=== PATIENT | male | born 1990 | race Hispanic/Latino ===

== ENCOUNTER 2025-05-19 14:29 | Emergency (ER) | payer BC, SELFPAY ==
[2025-05-19 14:31] VITALS: BP 132/86
[2025-05-19 15:20] VITALS: BP 125/79
[2025-05-19 15:36] VITALS: BMI 27.5
[2025-05-19] MEDS: NSS 1000 IV (15:48)
[2025-05-19 16:00] VITALS: BP 122/72
[2025-05-19 16:05] LABS: Hematocrit 44.0 % (39.0-52.0); Hemoglobin 15.7 g/dL (13.0-18.0); Mean Corp Hgb Conc. 35.7 g/dL (33.0-37.0); Mean Corpuscular Volume 83.5 fL (80.0-94.0); Nucleated Red Blood Cells % 0 % (-); Platelet Count 288 10^3/uL (130-400); Red Cell Dist. Width 12.3 % (11.5-14.5)
[2025-05-19 16:15] LABS: ALT (SGPT) 112 U/L (0-50); AST (SGOT) 60 U/L (17-59); Albumin 4.9 g/dl (3.5-5.0); Alkaline Phosphatase 88 U/L (38-126); Blood Urea Nitrogen 13 mg/dl (9-20); Calcium 9.4 mg/dl (8.4-10.2); Carbon Dioxide 27 mmol/L (22-30); Chloride 103 mmol/L (98-107); Estimated Creatinine Clearance > 125 ml/min; Glucose 96 mg/dl (70-99); Potassium 4.2 mmol/L (3.5-5.1); Sodium 139 mmol/L (135-145); Total Protein 7.8 g/dl (6.3-8.2); eGFR > 60.00
[2025-05-19 16:28] LABS: COVID-19 Antigen Negative (Negative)
--- NOTE | 2025-05-19 16:48 | ED.GENMED ---
History of Present Illness
General
Chief Complaint: Abdominal Symptoms
Time Seen by Provider: 05/19/25 14:35
History of Present Illness
History of Present Illness:
34-year-old male with no past medical history presents to the emergency department for evaluation of tactile fever and chills as well as sweating, shaking, body aches, and vomiting beginning today. Arrives with a close friend who provides
interpretation for him. He denies any chest pain or dyspnea, no coughing or rhinorrhea. Took Tylenol this morning
Past History
Past History
ED Past Medical History: None
ED Past Surgical History: None
Social History
Tobacco: Non-smoker
Alcohol: None
Drug: None
Personal: Partner
Employment: Employed
Review of Systems
Review of Systems
Allergies reviewed?: Yes
All Other Systems: ROS reviewed and negative except as documented in HPI and ROS
Phy Exam
Physical Exam
Physical Exam:
GEN: Well appearing, NAD, WDWN
HEENT: Oral mucosa moist, no scleral icterus
Cardiac: Slightly tachycardic, regular, no murmur
Lung: No respiratory distress, no tachypnea, lungs clear to auscultation
Abdomen: Soft, grossly nontender
MSK: No gross deformity or injuries
Skin: Good color, no pallor or jaundice, no rashes
Neuro: AO x3, moves all extremities freely
Psych: Calm, cooperative
Course
Orders/Labs/Results
Orders:
Orders
05/19/25 14:47
0.9% Sodium Chloride 1000 ml [Nss] 1,000 ml IV BOLUS
05/19/25 15:33
Comprehensive Metabolic Panel Urgent
05/19/25 15:34
COVID-19 Antigen Urgent
Source: Nasal Swab
Complete Blood Count/With Diff Urgent
Influenza A+B Rapid Molecular Urgent
DIANELYS Source: Nasal Swab
Specimen Description:
05/19/25 16:53
Ondansetron Injectable [Zofran] 4 mg IV NOW STA
Abnormal Lab Results
05/19/25 05/19/25
15:33 15:34
MPV 10.8 H fL
(7.4-10.4)
Absolute Neuts (auto) 7.7 H 10^3/uL
(1.4-6.5)
Absolute Monos (auto) 0.7 H 10^3/uL
(0.1-0.6)
Neutrophils % 77.9 H %
(42.2-75.2)
Lymphocytes % 13.9 L %
(20.5-51.1)
Creatinine 0.6 L mg/dL
(0.7-1.3)
AST 60 H U/L
(17-59)
ALT 112 H U/L
(0-50)
05/19/25 15:34
05/19/25 15:33
Vital Signs
Initial and Last Documented VS:
Initial Vital Signs
Temp Pulse Resp BP Pulse Ox
98.3 F 106 20 132/86 100
05/19/25 14:31 05/19/25 14:31 05/19/25 14:31 05/19/25 14:31 05/19/25 14:31
Last Documented Vital Signs
Temp Pulse Resp BP Pulse Ox
98.3 F 98 13 129/67 97
05/19/25 14:31 05/19/25 17:45 05/19/25 17:45 05/19/25 17:00 05/19/25 17:45
MDM/Problems Addressed
MDM/Problems Addressed:
Likely self-limited viral syndrome, labs reassuring, given IV fluids and antiemetics in the ED with mild improvement. Discussed supportive care. No indication for imaging given benign abdominal exam
*Pulse Oximetry
SaO2: 96
Oxygen Mode of Delivery: Room air
Patient hypoxic: no
*Critical Care Note
Total Time (30-74mins, 75-104mins- exclusive of procedures): Not Applicable
ED Attending Note
-
Portions of this chart may have been created with voice recognition software.� Occasional wrong word or��sound alike� substitutions may have occurred due to the inherent limitations of voice recognition software.
Discharge Plan
Departure
Patient Disposition: Home (Routine Discharge)
Date of Disposition: 05/19/25
Time of Disposition: 17:46
Patient with high blood pressure during this ER visit?: No
Discharge Problem:
Acute viral syndrome
Instructions: Nausea and Vomiting, Adult (DC)
Prescriptions:
New
ondansetron 4 mg tablet,disintegrating
4 mg PO TIDPRN PRN (Reason: nausea/vomiting) Qty: 10 0RF
No Action
prednisone 50 MG tablet
50 mg PO DAILY Qty: 5 0RF
doxycycline hyclate 100 MG capsule
100 mg PO Q12 Qty: 20 0RF
oseltamivir [Tamiflu] 75 MG capsule
75 mg PO BID Qty: 14 0RF
Referrals:
Branden Berg MD [Family Provider]
Interventions
Interventions:
*Risk Screen - Suicide Last Done: 05/19/25 14:31
*General Assessment Last Done: 05/19/25 15:36
*Neglect/Abuse Screening Last Done: 05/19/25 14:31
*ED- Fall Risk Assessment Last Done: 05/19/25 15:36
*ED COVID-19 Vaccine History Last Done: 05/19/25 15:36
*ED Influenza Vaccine History Last Done: 05/19/25 15:36
*Nursing Disposition Last Done: 05/19/25 18:08
DL-Ftcxat-Ahaaqswbrx Assessment Last Done: 05/19/25 15:36
Discharge Date and Time
Discharge Date/Time: 11/20/25 18:09
Print Language: [email or web address]
[2025-05-19 17:00] VITALS: BP 129/67
[2025-05-19] MEDS: ZOFRAN 4 MG IV (17:03)
== END 2025-05-19 18:09 | disposition home or self-care (01) ==
LOC: EMR 14:29
PROVIDERS: Physician Assistant; EMERGENCY PHYSICIAN Emergency Medicine; FAMILY PHYSICIAN Internal Medicine
DX: B34.9 Viral infection, unspecified (principal); R11.10 Vomiting, unspecified; Z11.52 Encounter for screening for COVID-19
CPT/HCPCS: 96374; 96361; 99284; 80053; 85025; 87502; 87811